=== PATIENT | female | born 1960 | race Caucasian/White ===

== ENCOUNTER → 2018-07-18 | Outpatient (CLI) | payer BC ==
--- NOTE | 2018-07-18 19:16 | XR ---
EXAMINATION TYPE: XR knee limited LT DATE OF EXAM: 07/18/2018 COMPARISON: NONE HISTORY: Knee pain TECHNIQUE: 2 views FINDINGS: I see no fracture nor dislocation. There is probably small knee joint effusion.. Joint spac es are fairly normal. IMPRESSION: Small joint effusion. No fracture. Minimal spurring of the medial femoral and tibial cond yles.
== END | disposition home or self-care (01) ==
LOC: RADXRMAIN 18:25
PROVIDERS: ATTEND Family Medicine
DX: M25.462 Effusion, left knee (principal); M25.561 Pain in right knee

== ENCOUNTER → 2018-08-15 | Outpatient (CLI) | payer BC ==
--- NOTE | 2018-08-16 09:29 | MM ---
Reason for exam: screening (asymptomatic). Last mammogram was performed 10 years and 2 months ago. Physical Findings: A clinical breast exam by your physician is recommended on an annual basis and results should be correlated with mammographic findings. MG 3D Screening Mammo W/Cad Bilateral CC and MLO view(s) were taken. Prior study comparison: June 20, 2008, bilateral digital screening mammogram. There are scattered fibroglandular densities. No significant changes when compared with prior studies. ASSESSMENT: Benign, BI-RAD 2 RECOMMENDATION: Routine screening mammogram of both breasts in 1 year.
== END ==
LOC: RADMAMWWP 08:30
PROVIDERS: ATTEND Family Medicine
DX: Z12.31 Encounter for screening mammogram for malignant neoplasm of breast (principal)
CPT/HCPCS: 77063; 77067